=== PATIENT | female | born 2000 | race Two or more races ===

== ENCOUNTER 2024-05-24 05:05 | Emergency (ER) | payer OTHER, MEDICAID, SELFPAY ==
[2024-05-24 05:05] VITALS: BMI 23.8
--- NOTE | 2024-05-24 05:15 | EKG_ITS ---
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
--- NOTE | 2024-05-24 05:15 | XR_ITS ---
Examination: PA lateral chest 2 views Technique: Upright PA lateral chest 2 views Exam date and time: May 24, 2024 0517 hrs. Indications: Coughing beginning 3 days ago fever beginning 2 days ago Findings: Pneumonia in the posterior basal segment left lower lobe Right lung clear The heart is normal in size Impression: Significant pneumonia posterior basal segment left lower lobe
--- NOTE | 2024-05-24 05:16 | PD.EDRME ---
Rapid Medical Screening Exam RME Arrival date/time: 05/24/24 05:05 24 year old female present to ED for c/o flu like sx I have greeted and performed a focused initial assessment of this patient. A comprehensive ED assessment and evaluation of the patient, analysis of all test results, and completion of the medical decision making process will be conducted by additional ED providers. Chief Complaint: Fever Time Seen by Provider: 05/24/24 05:08
[2024-05-24 05:39] VITALS: BP 127/86; PULSE 104; RESP 18; TEMP 37.8; O2SAT 97
[2024-05-24 05:48] LABS: Basophils % (Auto) 0 % (0-2.5); Eosinophils # (Auto) 0.1 Thou/mm3 (0.0-0.5); Eosinophils % (Auto) 1 % (0-10); Hematocrit 39.4 % (36.0-46.0); Hemoglobin 13.2 g/dL (12.0-16.0); Immature Granulocytes % (Auto) 0 % (0-0); Immature Granulocytes Auto 0.01 Thou/mm3 (0.00-0.00); Lymphocytes # (Auto) 0.9 Thou/mm3 (1.0-4.8); Lymphocytes % (Auto) 15 % (10-50); Mean Corpuscular HGB Conc 33.5 g/dl (31.0-37.0); Mean Corpuscular Hemoglobin 29.3 pg (25.0-35.0); Mean Corpuscular Volume 88 fL (80-100); Monocytes # (Auto) 0.5 Thou/mm3 (0.0-0.8); Monocytes % (Auto) 8 % (0-12); Neutrophils # (Auto) 4.7 Thou/mm3 (1.8-7.7); Neutrophils % (Auto) 76 % (37-80); Nucleated Red Blood Cell % 0 /100 WBC (0); Platelet Count 196 Thou/mm3 (140-440); RDW Standard Deviation 42.5 fL (36.4-46.3); White Blood Count 6.1 Thou/mm3 (3.6-11.0)
[2024-05-24 06:04] LABS: Strep A Rapid Negative (Negative)
[2024-05-24 06:06] LABS: HCG,Qualitative Serum Negative
[2024-05-24 06:11] LABS: Alanine Aminotransferase 16 U/L (10-49); Albumin, Serum 4.6 gm/dL (3.5-5.0); Albumin/Globulin Ratio 1.8 (1.2-2.2); Alkaline Phosphatase 63 U/L (46-116); Anion Gap 8 (7-16); Aspartate Amino Transferase 25 U/L (0-34); BUN/Creatinine Ratio 13 Ratio (12-20); Bilirubin,Total 0.4 mg/dL (0.3-1.2); Blood Urea Nitrogen 10 mg/dL (9-23); Calcium 10.1 mg/dL (8.3-10.6); Calcium (Corrected) 10.1 mg/dL (8.5-10.1); Carbon Dioxide 27.3 mMol/L (20.0-31.0); Chloride 103 mMol/L (98-107); Creatinine (Component) 0.8 mg/dL (0.6-1.3); Globulin 2.6 gm/dL (2.3-3.5); Glucose 103 mg/dL (74-106); Osmolality,Calculated 274 (275-295); Potassium 3.9 mMol/L (3.4-5.1); Sodium 138 mMol/L (136-145); Total Protein 7.2 gm/dL (5.7-8.2); Troponin I < 0.020 ng/mL (0.0-0.045); eGFR > 60 See Note
--- NOTE | 2024-05-24 06:32 | EDNOTE_ITS ---
Upper Respiratory Inf. RME/HPI General Chief Complaint: Fever Stated Complaint: FEVER/HEADACHE/ CHILLS Time Seen by Provider: 05/24/24 05:08 Arrival date/time: 05/24/24 05:05 24-year-old female presents the emergency department complains of cough, congestion and bodyaches patient for symptoms ongoing x 2 days patient reports he is currently taking penicillin and cough medicine prescribed by her doctor yesterday Limitations: no limitations RME / HPI RME / HPI Narrative: 05/24/24 05:05 24 year old female present to ED for c/o flu like sx I have greeted and performed a focused initial assessment of this patient. A comprehensive ED assessment and evaluation of the patient, analysis of all test results, and completion of the medical decision making process will be conducted by additional ED providers. Related Data Allergies Allergy/AdvReac Type Severity Reaction Status Date / Time NKA* Allergy Uncoded 07/08/13 16:07 Review of Systems Review of Systems Systems Reviewed: All systems reviewed, normal except as documented Constitutional Constitutional: Reports system reviewed and no additional complaints, except as documented, Reports body ache(s), Reports chills, Reports fever(s) and Denies headache(s) Eyes Eyes: Reports system reviewed and no additional complaints, except as documented and Denies blurry vision ENT Ears, Nose, Mouth, and Throat: Reports system reviewed and no additional complaints, except as documented, Denies headache(s), Reports nasal congestion and Reports nasal discharge Cardiovascular Cardiovascular: Reports system reviewed and no additional complaints, except as documented, Denies chest pain and Denies dyspnea Respiratory Respiratory: Reports system reviewed and no additional complaints, except as documented, Reports chest congestion, Reports cough and Denies dyspnea Gastrointestinal Gastrointestinal: Reports system reviewed and no additional complaints, except as documented and Denies abdominal pain Integumentary/Breasts Skin/Breast: Reports system reviewed and no additional complaints, except as documented and Denies rash Neurologic Neurologic: Reports system reviewed and no additional complaints, except as documented, Reports as per HPI and Denies headache(s) Past Medical History Social History SMOKING STATUS: Never smoker ED Exam General Limitations: Present no limitations General appearance: Present alert and in no apparent distress Head Head exam: Present atraumatic, normocephalic and normal inspection Eye Eye exam: Present normal appearance, PERRL and EOMI; Absent conjunctival injection ENT ENT exam: Present normal exam, normal oropharynx and mucous membranes moist Neck Neck exam: Present normal inspection, full ROM and trachea midline Chest Chest inspection: Present normal inspection and symmetric chest wall rise Respiratory Respiratory exam: Present normal lung sounds bilaterally Cardiovascular Cardiovascular exam: Present regular rate, normal rhythm and normal heart sounds Abdominal Exam Abdominal exam: Present soft and normal bowel sounds; Absent distention, tenderness, guarding, rebound or rigidity Extremities Exam Extremities exam: Present normal inspection and full ROM Back Exam Back exam: Present normal inspection and full ROM Neurological Exam Neurological exam: Present alert, oriented X3 and CN II-XII intact Psychiatric Psychiatric exam: Present normal affect and normal mood Skin Skin exam: Present warm, dry, intact and normal color Course Quality Measures none Orders Category Date Time Status Bedside COVID-19 Antigen Test NOW Care 05/24/24 05:13 Completed Bedside Influenza A&B Antigen Test NOW Care 05/24/24 05:14 Completed EKG (ED ONLY) *Do not use* NOW Care 05/24/24 05:16 Completed EKG (ED Only) Stat Exams 05/24/24 05:15 Draft XR chest 2V Stat Exams 05/24/24 05:15 Taken CBC Stat Lab 05/24/24 05:29 Completed CMP [Comprehensive Metabolic Panel] Stat Lab 05/24/24 05:29 Completed HCG,Qualitative Serum Stat Lab 05/24/24 05:29 Completed Strep A Rapid Stat Lab 05/24/24 05:30 Completed Troponin I Stat Lab 05/24/24 05:29 Completed UA [Urinalysis] Stat Lab 05/24/24 05:43 Received Urine Culture Stat Lab 05/24/24 05:43 Received Sodium Chloride 0.9% 1000 ml [Ns] 1,000 ml Med 05/24/24 05:19 Discontinued IV 999 mls/hr Vital Signs Vital signs: Vital Signs Temperature 100.1 F 05/24/24 05:39 Pulse Rate 104 H 05/24/24 05:39 Respiratory Rate 18 05/24/24 05:39 Blood Pressure 127/86 H 05/24/24 05:39 Pulse Oximetry (%) 97 05/24/24 05:39 Oxygen Delivery Method Room Air 05/24/24 05:39 O2 saturation 97% room air within normal limits Procedures -ED EKG Interpretation #1: Date of EK05/24/24 Time of EK:32 Rate: 113 Interpretation: Interpreted by me EKG Impression: No acute ST-T changes, No ectopy, No ischemic changes, Sinus tachycardia, Normal QRS, Normal intervals and Normal axis Upper Respiratory Infection MDM Narrative MDM Narrative:: 24-year-old female presents the emergency department complains of cough, congestion and bodyaches patient for symptoms ongoing x 2 days patient reports he is currently taking penicillin and cough medicine prescribed by her doctor yesterday On exam patient well-appearing patient does not appear ill or toxic patient does not appear in acute distress Lab work, chest x-ray, EKG obtained no acute emergent findings noted Symptoms highly consistent with viral illness Patient discharged home in no distress to follow-up with primary care doctor in the next 24 to 48 hours and for any worsening symptoms to return to the ER immediately Patient data External records reviewed:: [facility] previous records Clinical information provided by:: patient Social determinants that could affect healthcare access:: none Patient has the following chronic illnesses:: None How is presenting disease/condition affected by chronic disease/condition?: no chronic disease Evaluation data The following diagnostics were reviewed and interpreted by me:: lab results, radiology exam(s) and EKG tracing(s) Lab and/or radiology exams considered but not ordered:: Labs, radiology, EKG obtained Interpretation Summary: Reviewed by me Medications / Prescriptions Medications or Prescriptions considered but not ordered:: Given Medication administrations:: Medication Administration History Discontinued Medications Sodium Chloride (Ns) 1,000 mls @ 999 mls/hr IV .Q1H1M ONE Stop: 05/24/24 06:19 Last Admin: 05/24/24 06:39 Dose: Not Given Documented By: LALO Non-Admin Reason: Cancelled by Provider Given Consultations Consultation(s) initiated? (list below): No Diagnosis Upper Respiratory Differential Diagnosis: upper respiratory infection, sinusitis, viral infection and bronchitis Most likely diagnosis given after review of the tests above:: URI Admission Indicated Admission indicated?: not indicated Admission Request Was there a request for admission?: No Disposition Plan Disposition Plan: Discharge Discharge Attestation Discharge Attestation: The patient and all family members were given an opportunity to ask questions and understood the discharge instructions. Discharge instructions specifically effects, indications for sooner follow up or return to the emergency department, and the expected course of current diagnosis. Patient condition: Stable Discharge Plan Plan Patient Disposition: HOME (Self Care) Disposition Comment: Stable Prescriptions/Referrals Referrals: Genoveva Cortez NP [Primary Care Provider] - 05/25/24 Problem List Clinical Impression: Upper respiratory infection Patient/Caregiver Discharge Instructions Education Materials: ED URI, Viral, No Abx (Adult) Additional Instructions: Please follow up with your primary care doctor in the next 24-48hrs for any worsening symptoms return here immediately Print Language: Maori Stand Alone Forms: Lindsay Award Info., Patient Portal Info Letter PA/FAST FOOD TEAM MEMBER Supervising Physician PA/FAST FOOD TEAM MEMBER Supervising Physician: Dr. carver
[2024-05-24 06:33] LABS: Collection Type, Urine Voided
[2024-05-24 07:18] LABS: Bacteria,Urine 1+; Bilirubin,Urine Negative (Negative); Blood,Urine Negative (Negative); Clarity,Urine Turbid (Clear/Hazy); Color,Urine Yellow (Lt Yel-Yel); Glucose, Urine Negative (Negative); Ketones,Urine 1+ (Negative); Leukocyte Esterase,Urine Positive (Negative); Nitrite,Urine Negative (Negative); PH,Urine 6.5 (5.0-7.0); Protein,Urine 1+ (Neg - Trace); RBC,Urine 5 /hpf (0-3); Specific Gravity,Urine 1.023 (1.001-1.035); Squamous Epithelial Cell,Urine 12 /hpf (0-5); Urobilinogen,Urine Negative mg/dL (0.0-1.0); WBC,Urine 12 /hpf (0-5)
== END 2024-05-24 06:41 | disposition home or self-care (01) ==
PROVIDERS: Physician Assistant; Emergency Provider Emergency Medicine; PCP Nurse Practitioner Women's Health
DX: J06.9 Acute upper respiratory infection, unspecified (principal)
CPT/HCPCS: 36415; 71046; 80053; 81001; 84484; 84703; 85025; 87086; 87400; 87651; 87811; 93005; 99283